=== PATIENT | female | born 1945 | race African-American/Black ===

== ENCOUNTER 2018-11-10 08:24 | Emergency (ER) | payer MEDICARE, MEDICAID ==
[~2018-11-10] VITALS: Ht 160 cm; Wt 98.0 kg
[~2018-11-10 08:24] MED LIST: AMLO2.5T45 PO; BENA1TAB18 PO; NAPR-681 PO
[2018-11-10] MEDS ORDERED: TETANUS, DIPHTHERIA, PERTUSSIS VAC/PF 0.5ML (>7YR OLD) IM ONE (09:45)
[2018-11-10 10:30] VITALS: BP 147/79
== END 2018-11-10 10:32 | disposition home or self-care (01) ==
LOC: ER 08:24
DX: S00.511A Abrasion of lip, initial encounter (principal); S09.8XXA Other specified injuries of head, initial encounter; I10 Essential (primary) hypertension; W01.0XXA Fall on same level from slipping, tripping and stumbling without subsequent striking against object, initial encounter; Z98.51 Tubal ligation status; Y93.G3 Activity, cooking and baking; Y92.000 Kitchen of unspecified non-institutional (private) residence as the place of occurrence of the external cause
CPT/HCPCS: 90471; 90715; 99284

== ENCOUNTER 2020-02-26 06:00 | Emergency (ER) | payer MEDICARE, MEDICAID ==
[~2020-02-26] VITALS: Ht 160 cm; Wt 99.0 kg
[2020-02-26 08:00] VITALS: BP 151/74
[2020-02-26 08:26] LABS: BASOPHILS % 0.7 % (0.0-2.0); EOSINOPHILS % 3.4 % (0.0-5.0); HEMATOCRIT. 38.6 % (36.0-48.0); HEMOGLOBIN. 12.9 g/dL (12.0-16.0); MEAN CORPUSCULAR HEMOGLOBIN 29.5 pg (28.0-32.0); MEAN CORPUSCULAR VOLUME 88.2 fL (81.0-99.0); MEAN PLATELET VOLUME 7.7 fl (7.4-10.4); MONOCYTES % 5.3 % (2.0-8.0); NEUTROPHILS % 69.6 % (40.0-76.0); PLATELET 305 x1000/uL (130-400); RED BLOOD CELL COUNT 4.38 mill/uL (4.2-5.4); RED CELL DISTRIBUTION WIDTH 13.8 % (11.6-14.6)
[2020-02-26 08:32] LABS: CHLORIDE 106 mEq/L (98-107)
[2020-02-26 08:37] LABS: PROTHROMBIN TIME 10.3 sec (9.6-11.0)
[2020-02-26 08:42] LABS: B-HCG QUANTITATIVE < 1 mIU/mL (<3)
== END 2020-02-26 09:35 | disposition home or self-care (01) ==
LOC: ER 06:00
DX: N93.8 Other specified abnormal uterine and vaginal bleeding (principal); I10 Essential (primary) hypertension; Z98.51 Tubal ligation status; Z79.899 Other long term (current) drug therapy; Z88.5 Allergy status to narcotic agent
CPT/HCPCS: 36415; 76830; 76856; 80053; 84702; 85025; 86850; 86900; 93005; 99285

== ENCOUNTER 2022-08-12 10:39 | Emergency (ER) | payer MEDICARE, MEDICAID ==
[~2022-08-12] VITALS: Ht 160 cm; Wt 91.0 kg
[2022-08-12 10:50] VITALS: BP 214/73
[2022-08-12] MEDS ORDERED: TETANUS, DIPHTHERIA, PERTUSSIS VAC/PF 0.5ML (>10YR OLD) IM ONE (13:00)
== END 2022-08-12 14:59 | disposition home or self-care (01) ==
LOC: ER 10:39
DX: S01.81XA Laceration without foreign body of other part of head, initial encounter (principal); I10 Essential (primary) hypertension; Z88.5 Allergy status to narcotic agent; Z98.51 Tubal ligation status; W01.0XXA Fall on same level from slipping, tripping and stumbling without subsequent striking against object, initial encounter; Y93.89 Activity, other specified; Y92.89 Other specified places as the place of occurrence of the external cause; Y99.8 Other external cause status
CPT/HCPCS: 90471; 90715; 99283

== ENCOUNTER 2022-08-24 18:28 | Emergency (ER) | payer BC, MEDICAID ==
[~2022-08-24] VITALS: Ht 160 cm; Wt 91.0 kg
[2022-08-24 20:28] LABS: BASOPHILS % 0.3 % (0.0-2.0); EOSINOPHILS % 4.6 % (0.0-5.0); HEMATOCRIT. 35.2 % (36.0-48.0); HEMOGLOBIN. 11.6 g/dL (12.0-16.0); LYMPHOCYTES % 23.3 % (20.0-50.0); MEAN CORPUSCULAR HEMOGLOBIN 28.9 pg (28.0-32.0); MEAN CORPUSCULAR VOLUME 87.5 fL (81.0-99.0); MEAN PLATELET VOLUME 7.5 fl (7.4-10.4); MONOCYTES % 6.6 % (2.0-8.0); NEUTROPHILS % 65.2 % (40.0-76.0); PLATELET 400 x1000/uL (130-400); RED BLOOD CELL COUNT 4.03 mill/uL (4.2-5.4)
[2022-08-24 20:36] LABS: CHLORIDE 103 mEq/L (98-107)
[2022-08-24 22:49] VITALS: BP 151/75
== END 2022-08-24 22:45 | disposition home or self-care (01) ==
LOC: ER 18:53
DX: R05.9 Cough, unspecified (principal); R09.81 Nasal congestion; R07.89 Other chest pain; I10 Essential (primary) hypertension; Z98.51 Tubal ligation status; Z88.5 Allergy status to narcotic agent; Z20.822 Contact with and (suspected) exposure to COVID-19
CPT/HCPCS: 36415; 71045; 80053; 83605; 83880; 84145; 84484; 85025; 87426; 87804; 93005; 99285; C9803

== ENCOUNTER 2023-11-12 11:06 | Emergency (ER) | payer BC, MEDICAID ==
[~2023-11-12] VITALS: Ht 165.1 cm; Wt 95.0 kg
[2023-11-12 11:14] VITALS: BP 140/68; PULSE 96; RESP 18; TEMP 98.5; O2SAT 97
[2023-11-12 11:26] LABS: BASOPHILS % 0.5 % (0.0-2.0); EOSINOPHILS % 4.4 % (0.0-5.0); HEMATOCRIT. 39.9 % (36.0-48.0); HEMOGLOBIN. 13.4 g/dL (12.0-16.0); LYMPHOCYTES % 30.5 % (20.0-50.0); MEAN CORPUSCULAR HEMOGLOBIN 29.3 pg (28.0-32.0); MEAN CORPUSCULAR HGB CONC 33.6 g/dL (31.0-37.0); MEAN PLATELET VOLUME 7.5 fl (7.4-10.4); MONOCYTES % 6.3 % (2.0-8.0); NEUTROPHILS % 58.3 % (40.0-76.0); PLATELET 343 x1000/uL (130-400); RED BLOOD CELL COUNT 4.58 mill/uL (4.2-5.4); RED CELL DISTRIBUTION WIDTH 13.9 % (11.6-14.6); WHITE BLOOD COUNT 8.5 x1000/uL (4.5-11.0)
[2023-11-12 12:05] LABS: ALANINE AMINOTRANSFERASE < 7 IU/L (10-49); ALBUMIN 4.3 g/dL (3.2-4.8); ASPARTATE AMINOTRANSFERASE 11 IU/L (<34); BILIRUBIN TOTAL 0.2 mg/dL (0.1-1.0); CALCIUM 9.3 mg/dL (8.7-10.4); CARBON DIOXIDE 32 mEq/L (21-32); CHLORIDE 101 mEq/L (98-107); CREATININE 0.8 mg/dL (0.6-1.0); GLUCOSE 123 mg/dL (70-105); POTASSIUM 3.4 mEq/L (3.5-5.1); SODIUM 140 mEq/L (136-145); UREA NITROGEN BLOOD 21 mg/dL (9-23)
[2023-11-12 13:38] LABS: TROPONIN I HIGH SENSITIVITY 6 ng/L (3.0-34)
[2023-11-12] MEDS ORDERED: DICL100G58 TP (14:33)
[2023-11-12] MEDS ORDERED: ACET325T52 MT (14:35)
== END 2023-11-12 15:10 | disposition home or self-care (01) ==
LOC: ER 13:16
DX: M54.2 Cervicalgia (principal); E78.00 Pure hypercholesterolemia, unspecified; I10 Essential (primary) hypertension; Z88.5 Allergy status to narcotic agent
CPT/HCPCS: 36415; 80053; 84484; 85025; 93005; 99284

== ENCOUNTER 2025-05-08 00:54 | Emergency (ER) | payer BC, MEDICAID ==
[~2025-05-08] VITALS: Ht 160 cm; Wt 88.0 kg
[~2025-05-08 00:54] MED LIST changes: +ACET-3800 MT; +DICL100G58 TP
[2025-05-08 01:00] VITALS: O2SAT 96
[2025-05-08 03:20] VITALS: BP 185/75; PULSE 78; RESP 18; TEMP 36.9; O2SAT 97
== END 2025-05-08 03:27 | disposition home or self-care (01) ==
LOC: ER 00:54
DX: I10 Essential (primary) hypertension (principal); E78.00 Pure hypercholesterolemia, unspecified; Z00.00 Encounter for general adult medical examination without abnormal findings; Z79.899 Other long term (current) drug therapy; Z88.5 Allergy status to narcotic agent
CPT/HCPCS: 99282